=== PATIENT | female | born 1990 | race African-American/Black ===

== ENCOUNTER → 2017-12-28 | Outpatient (CLI) | payer OTHER | END | disposition home or self-care (01) | LOC: PNCL 12:49 | DX: M51.36 Other intervertebral disc degeneration, lumbar region (principal); J45.909 Unspecified asthma, uncomplicated; R53.83 Other fatigue; R20.0 Anesthesia of skin | CPT/HCPCS: 99214 ==

== ENCOUNTER → 2018-04-04 | Outpatient (CLI) | payer OTHER ==
[2018-04-04] MEDS: GADOBUTROL 10 MMOL/10 ML VIAL IV (13:15)
== END | disposition home or self-care (01) ==
LOC: KCIC MRI 12:13
DX: M51.26 Other intervertebral disc displacement, lumbar region (principal); M48.061 Spinal stenosis, lumbar region without neurogenic claudication; M12.88 Other specific arthropathies, not elsewhere classified, other specified site
CPT/HCPCS: 72158; A9585

== ENCOUNTER → 2018-08-16 | Outpatient (CLI) | payer OTHER ==
[~2018-08-16] MED LIST: BUSP5TAB PO; GADOBUTROL 7.5 MMOL/7.5 ML VIAL IV ONE; MELO7.5T29 PO; META-21 PO; OXYC1TAB15 PO; OXYC5CAP PO
--- NOTE | 2018-08-16 16:03 | KCIC ---
MRI Lumbar Spine without and with contrast History: Low back pain, right leg numbness, previous surgery Technique: Multiplanar, multi sequential pre and postcontrast MR imaging was performed of the lumbar spine. Comparison: April 04, 2018 Findings: There again appears to be transitional anatomy. Same numbering is utilized as for previous exam, most inferior fully formed although rudimentary intervertebral disc space considered S1-S2, assumption of 5 lumbar type vertebral bodies. Lumbar vertebral body stature is unchanged, within normal limits other than small Schmorl's nodes. Previously seen L5-S1 endplate edema has decreased, increased trace L4-5 endplate edema posteriorly probably reactive/degenerative in etiology. Conus terminates at L2. There is again hemangioma of the L2 vertebral body. AP alignment is within normal limits. L2-L3: There is mild buckling of the ligamentum flavum and facet hypertrophic change. There is prominence of posterior epidural fat. Spinal canal and neural foramina are adequate. L3-L4: There is prominence of posterior epidural fat, mild facet degenerative change, buckling of the ligamentum flavum. Neural foramina and spinal canal are adequate. L4-L5: There is now small left laminectomy defect more laterally associated with enhancement. There is a small focal fluid collection at surgical site in the soft tissues posterior to the laminectomy defect about 1.2 cm AP by 0.8 cm CC by 0.5 cm transverse, mild enhancement at the periphery better seen on postcontrast sagittal images, does not extend into the spinal canal. There is mild enhancement in the far left lateral recess near the descending left L4 nerve root. There is minimal residual bulge with adjacent enhancement at the margin. There is residual overall left mild to moderate spinal stenosis, some preserved subarachnoid space. There is indentation upon the ventral thecal sac in the far left lateral recess due to bulge in combination with enhancing fibrosis. There is again buckling of the ligamentum flavum. There is mild facet degenerative change. Disc osteophyte complex results in overall mild narrowing of the inferior left neural foramen, right neural foramen adequate. There is increased amorphous enhancement in the thecal sac at the L4-5 level greatest centrally and on the right about 0.6 m transverse by 0.5 cm AP by 0.9 cm CC although does not have a defined margin as seen on sagittal images. L5-S1: There is again right laminectomy defect. There is again minimal disc osteophyte complex and bulge which is similar. There is mild indentation upon the ventral thecal sac without significant neural impingement or new significant spinal stenosis. Neural foramina are overall adequate. S1-S2: Spinal canal and neural foramina are adequate. Impression: 1. There again appears to be transitional anatomy of the lumbar spine, most inferior fully formed other rudimentary intervertebral disc space considered S1-S2, assumption of 5 lumbar type vertebral bodies. There is now small left laminectomy defect at L4-5, small nonspecific fluid collection posterior to the surgical site in the soft tissues of uncertain sterility. There is enhancing fibrosis associated in the left lateral recess at L4-5 and minimally along margin of residual bulge, also about the descending left L5 nerve root. There is overall mild to moderate narrowing of the spinal canal at L4-5. There is again right laminectomy defect at L5-S1. There is similar mild narrowing of the left L4-5 neural foramen. There is increased amorphous enhancement in the thecal sac at the L4-5 level greatest centrally and on the right although does not have a defined border likely a mass as seen on the sagittal images, may be related to enhancement of the clumped nerve roots as could be related to sequela of arachnoiditis. Electronically signed by: Sigifredo Acevedo MD (08/16/2018 3:59 PM) [id number]
== END | disposition home or self-care (01) ==
LOC: KCIC MRI 13:31
PROVIDERS: ATTEND Anesthesiology Pain Medicine
DX: M54.16 Radiculopathy, lumbar region (principal); M48.061 Spinal stenosis, lumbar region without neurogenic claudication; M25.78 Osteophyte, vertebrae; D18.09 Hemangioma of other sites
CPT/HCPCS: 72158; A9585